=== PATIENT | female | born 1980 | race Caucasian/White ===

== ENCOUNTER 2017-06-02 10:48 | Emergency (ER) | payer MEDICAID ==
[~2017-06-02] VITALS: Ht 172.7 cm; Wt 103.5 kg
[2017-06-02] MEDS ORDERED: MORPHINE SULFATE 4 MG/ML, 1ML IVPush PRN (11:30)
[2017-06-02] MEDS ORDERED: SODIUM CHLORIDE 0.9% 1,000ML IVBOLUS ONE (11:30)
[2017-06-02] MEDS ORDERED: SODIUM CHLORIDE FLUSH 10ML SYR IVF ONE (11:30)
[2017-06-02] MEDS ORDERED: ONDANSETRON 2MG/ML, 2ML IVPush ONE (11:30)
[2017-06-02] MEDS ORDERED: morphine SULFATE 10 MG/ML, 1ML ONE (12:03)
[2017-06-02] MEDS ORDERED: ONDANSETRON 2MG/ML, 2ML ONE (12:03)
[2017-06-02 12:09] LABS: BLOOD UREA NITROGEN 17 mg/dL (7-18)
[2017-06-02 12:17] LABS: IS PT STATUS REG ER OR PRE ER? YES
[2017-06-02 13:18] VITALS: BP 124/91
== END 2017-06-02 13:20 | disposition home or self-care (01) ==
LOC: ED 12:56
DX: J34.1 Cyst and mucocele of nose and nasal sinus (principal); I10 Essential (primary) hypertension; I16.9 Hypertensive crisis, unspecified
CPT/HCPCS: 36415; 70450; 71010; 80048; 82040; 83880; 84484; 93005; 96361; 96374; 96375; 99285; J2405; J7030